=== PATIENT | female | born 1995 | race Hispanic/Latino ===

== ENCOUNTER 2019-06-15 03:11 | Emergency (ER) | payer OTHER ==
[~2019-06-15] VITALS: Ht 162.6 cm; Wt 98.9 kg
[2019-06-15] MEDS ORDERED: LIDOCAINE/PRILOCAINE 2.5-2.5% KIT TOP ONE (04:00)
[2019-06-15] MEDS ORDERED: LIDOCAINE/PRILOCAINE 2.5-2.5% KIT ONE (04:05)
== END 2019-06-15 03:57 | disposition home or self-care (01) ==
LOC: ER 03:11
DX: K64.8 Other hemorrhoids (principal)
CPT/HCPCS: 99282